=== PATIENT | male | born 1955 | race Caucasian/White ===

== ENCOUNTER 2020-01-23 07:35 | Outpatient (CLI) | payer OTHER ==
[2020-01-23 15:41] LABS: BASOPHILS % (AUTO) 0.7 %; EOSINOPHILS # (AUTO) 0.1 10^3/uL (0.0-0.7); EOSINOPHILS % (AUTO) 2.4 %; HGB - HEMOGLOBIN 14.7 g/dL (14.0-18.0); LYMPHOCYTES # (AUTO) 1.2 10^3/uL (1.5-3.5); LYMPHOCYTES % (AUTO) 28.9 %; MEAN CORPUSCULAR HEMOGLOBIN 31.1 pg (27.0-31.0); MEAN CORPUSCULAR VOLUME 91.3 fL (80.0-94.0); MEAN PLATELET VOLUME 10.3 fL (7.4-11.4); MONOCYTES # (AUTO) 0.4 10^3/uL (0.0-1.0); MONOCYTES % (AUTO) 9.1 %; NEUTROPHILS # (AUTO) 2.5 10^3/uL (1.5-6.6); NEUTROPHILS % (AUTO) 58.7 %; PLT - PLATELET COUNT 168 10^3/uL (130-450); RED BLOOD COUNT 4.73 10^6/uL (4.70-6.10); RED CELL DISTRIBUTION WIDTH 12.8 % (12.0-15.0); WHITE BLOOD COUNT 4.2 x10^3/uL (4.8-10.8)
[2020-01-23 15:57] LABS: ALBUMIN 4.5 g/dL (3.2-5.5); ALKALINE PHOSPHATASE 58 IU/L (42-121); ALT ALANINE AMINOTRANSFERASE 21 IU/L (10-60); AST ASPARTATE AMINOTRANSFERASE 21 IU/L (10-42); BILIRUBIN,TOTAL 0.8 mg/dL (0.2-1.0); BUN - BLOOD UREA NITROGEN 12 mg/dL (6-20); CALCIUM 9.3 mg/dL (8.5-10.3); CARBON DIOXIDE - CO2 25 mmol/L (21-32); CHLORIDE 102 mmol/L (101-111); CHOL/HDL RATIO 2.4 (<5.0); CHOLESTEROL 203 mg/dL; CREATININE 0.7 mg/dL (0.6-1.2); GLUCOSE 109 mg/dL (70-100); HDL CHOLESTEROL 86 mg/dL; LDL CHOLESTEROL,CALCULATED 106 mg/dL; LDL/HDL RATIO 1.2 (<3.6); SODIUM 138 mmol/L (135-145); TOTAL PROTEIN 6.8 g/dL (6.7-8.2); VLDL CHOLESTEROL 11 mg/dL
== END 2020-01-23 07:36 | disposition home or self-care (01) ==
LOC: LAB.S 07:35
PROVIDERS: ATTEND Registered Nurse
DX: Z13.220 Encounter for screening for lipoid disorders (principal); Z12.5 Encounter for screening for malignant neoplasm of prostate; Z13.29 Encounter for screening for other suspected endocrine disorder; Z13.0 Encounter for screening for diseases of the blood and blood-forming organs and certain disorders involving the immune mechanism; Z13.228 Encounter for screening for other metabolic disorders
CPT/HCPCS: 36415; 80053; 80061; 83721; 84153; 84443; 85025

== ENCOUNTER 2020-03-01 07:50 | Outpatient (CLI) | payer OTHER ==
--- NOTE | 2020-03-01 08:43 | Ultrasound Report ---
PROCEDURE: Aorta Screening INDICATIONS: CARDIOVASCULAR SCREENING TECHNIQUE: Real time scanning was performed of the aorta and iliac arteries, with image documentatio n. COMPARISON: None FINDINGS: Aorta: Proximal aortic diameter measures 2.5 x 2.3 cm. Mid-aorta measures 2.0 x 2.0 cm. Distal aor tic diameter is 2.0 x 2.0 cm. Iliac arteries: Right common iliac artery measures 1.3 x 1.2 cm. Left common iliac artery measures 1.4 x 1.2 cm. IMPRESSION: No aortic or iliac artery aneurysm. Minimal atherosclerotic disease identified. Reviewed by: Dwayne Haddad MD on 03/01/2020 8:42 AM PST Approved by: Dwayne Haddad MD on 03/01/2020 8:42 AM PST Station ID: [id number]
== END 2020-03-01 07:51 | disposition home or self-care (01) ==
LOC: DI 07:50
PROVIDERS: ATTEND Registered Nurse
DX: Z13.6 Encounter for screening for cardiovascular disorders (principal)

== ENCOUNTER 2020-11-01 22:50 | Emergency (ER) | payer OTHER ==
[2020-11-01 23:13] LABS: BILIRUBIN,URINE NEGATIVE (NEGATIVE); GLUCOSE, URINE (UA) NEGATIVE (NEGATIVE); KETONES,URINE (UA) TRACE mg/dL (NEGATIVE); LEUKOCYTE ESTERASE, URINE TRACE (NEGATIVE); NITRITE,URINE NEGATIVE (NEGATIVE); OCCULT BLOOD,URINE LARGE (NEGATIVE); PROTEIN,URINE >=300 mg/dL (NEGATIVE); UROBILINOGEN,URINE 1 (NORMAL) E.U./dL (NORMAL)
[2020-11-01 23:14] LABS: BASOPHILS % (AUTO) 0.4 %; EOSINOPHILS # (AUTO) 0.1 10^3/uL (0.0-0.7); EOSINOPHILS % (AUTO) 1.8 %; HCT - HEMATOCRIT 42.4 % (42.0-52.0); HGB - HEMOGLOBIN 14.7 g/dL (14.0-18.0); LYMPHOCYTES # (AUTO) 1.6 10^3/uL (1.5-3.5); LYMPHOCYTES % (AUTO) 28.1 %; MEAN CORPUSCULAR HEMOGLOBIN 31.5 pg (27.0-31.0); MEAN CORPUSCULAR HGB CONC 34.7 g/dL (32.0-36.0); MONOCYTES # (AUTO) 0.5 10^3/uL (0.0-1.0); MONOCYTES % (AUTO) 9.4 %; NEUTROPHILS # (AUTO) 3.3 10^3/uL (1.5-6.6); NEUTROPHILS % (AUTO) 59.8 %; PLT - PLATELET COUNT 172 10^3/uL (130-450); RED BLOOD COUNT 4.66 10^6/uL (4.70-6.10); WHITE BLOOD COUNT 5.6 x10^3/uL (4.8-10.8)
[2020-11-01 23:15] LABS: CLARITY,URINE CLOUDY (CLEAR)
[2020-11-01 23:16] LABS: RBC,URINE TNTC /HPF (0-5); SQUAMOUS EPITHELIAL CELL,UR NONE SEEN (<= Few); WBC,URINE 0-3 /HPF (0-3)
[2020-11-01 23:17] LABS: BACTERIA,URINE Rare /HPF (None Seen)
[2020-11-01 23:25] LABS: ALBUMIN 4.2 g/dL (3.2-5.5); ALBUMIN/GLOBULIN RATIO 1.9 (1.0-2.2); BILIRUBIN,TOTAL 0.7 mg/dL (0.2-1.0); CALCIUM 8.8 mg/dL (8.5-10.3); CREATININE 0.7 mg/dL (0.6-1.2); POTASSIUM 3.8 mmol/L (3.5-5.0); TOTAL PROTEIN 6.4 g/dL (6.7-8.2)
[2020-11-01] MEDS ORDERED: IOPAMIDOL-300 100 ML VIAL ONE (23:48)
[2020-11-02] MEDS ORDERED: IOPAMIDOL-300 100 ML VIAL IVP ONE (00:09)
--- NOTE | 2020-11-02 00:57 | ED Physician Documentation ---
History of Present Illness - Stated complaint Stated Complaint: BLOOD IN URINE - Chief complaint Chief Complaint: General - History obtained from History obtained from: Patient - Additonal information Additional information: 65-year-old man with history of HPV p16 throat cancer presents with hematuria this evening. Patient and his got home from [place] today and were having sex for a long time then stopped and he got up to go to the bathroom. He urinated a couple of clots and then gross hematuria multiple times. Patient states that he urinated this morning and it was normal color. Denies penile, testicular, abdominal pain, back pain, fever, increased frequency, or dysuria. He did have a clot placed through the urine 3 years ago but never had an abdominal CT scan per his report to investigate. Review of Systems Ten Systems: 10 systems reviewed and negative Constitutional: denies: Fever, Chills GI: denies: Abdominal Pain, Nausea, Vomiting : reports: Hematuria. denies: Dysuria, Frequency PD PAST MEDICAL HISTORY - Present Medications Home Medications: Ambulatory Orders Medication Instructions Recorded Confirmed Cefpodoxime Proxetil [Vantin] 200 mg PO Q12H #28 tablet 11/02/20 - Allergies Allergies/Adverse Reactions: Allergies Allergy/AdvReac Type Severity Reaction Status Date / Time Penicillins Allergy Unknown Verified 11/01/20 23:05 - Social History Does the pt smoke?: No Smoking Status: Never smoker PD ED PE NORMAL - Vitals Vital signs reviewed: Yes - General General: Alert and oriented X 3, No acute distress, Well developed/nourished - HEENT HEENT: Atraumatic, PERRL, EOMI - Neck Neck: Supple, no meningeal sign - Cardiac Cardiac: RRR - Respiratory Respiratory: No respiratory distress, Clear bilaterally - Abdomen Abdomen: Non tender, Non distended - Back Back: No CVA TTP - Derm Derm: Normal color, Warm and dry - Extremities Extremities: No deformity - Neuro Neuro: Alert and oriented X 3 - Psych Psych: Normal mood, Normal affect Results - Vitals Vitals: Vital Signs - 24 hr 11/01/20 11/01/20 23:05 23:09 Temperature 36.4 C L 36.4 C L Heart Rate 54 L 54 L Respiratory 16 16 Rate Blood Pressure 125/71 125/71 O2 Saturation 97 97 Oxygen O2 Source Room air - Labs Labs: Laboratory Tests 11/01/20 11/01/20 11/01/20 23:00 23:07 23:07 WBC 5.6 RBC 4.66 L Hgb 14.7 Hct 42.4 MCV 91.0 MCH 31.5 H MCHC 34.7 RDW 13.0 Plt Count 172 MPV 9.0 Neut # (Auto) 3.3 Lymph # (Auto) 1.6 Haakon # (Auto) 0.5 Eos # (Auto) 0.1 Baso # (Auto) 0.0 Absolute Nucleated RBC 0.00 Nucleated RBC % 0.0 Sodium 142 Potassium 3.8 Chloride 105 Carbon Dioxide 25 Anion Gap 12.0 BUN 12 Creatinine 0.7 Estimated GFR (MDRD) 114 Glucose 127 H Calcium 8.8 Total Bilirubin 0.7 AST 16 ALT 21 Alkaline Phosphatase 61 Total Protein 6.4 L Albumin 4.2 Globulin 2.2 Albumin/Globulin Ratio 1.9 Lipase 26 Urine Color RED/BLOODY Urine Clarity CLOUDY Urine pH 7.0 Ur Specific Glasco 1.025 Urine Protein >=300 H Urine Glucose (UA) NEGATIVE Urine Ketones TRACE Urine Occult Blood LARGE H Urine Nitrite NEGATIVE Urine Bilirubin NEGATIVE Urine Urobilinogen 1 (NORMAL) Ur Leukocyte Esterase TRACE H Urine RBC TNTC H Urine WBC 0-3 Ur Squamous Epith Cells NONE SEEN Urine Bacteria Rare Ur Microscopic Review INDICATED Urine Culture Comments INDICATED PD MEDICAL DECISION MAKING - ED course ED course: 65-year-old man presents with asymptomatic hematuria. Will obtain CT abdomen to evaluate for cancer etiology. Low suspicion for kidney stones at this time. Patient has a PET scan scheduled for . CT showed bladder mass 4cm - neoplasm vs blood clot vs "fungus ball". d/w patient need for cystoscopy and biopsy. will give abx for now, given leukocyte esterase in urine. return precautions given. Departure - Departure Disposition: Home, Self Care Clinical Impression: Hematuria, Bladder mass, UTI (urinary tract infection) Condition: Good Instructions: ED UTI Cystitis Male Prescriptions: Cefpodoxime Proxetil [Vantin] 200 mg PO Q12H #28 tablet Comments: You were seen in the emergency department for evaluation of blood in the urine (hematuria). A CT was done which found a 4 cm urinary bladder mass which is a possible neoplasm versus blood clot versus fungus ball. You need to have a cystoscopy and biopsy by a urologist. Your lab work was otherwise normal, and your urine had increased white blood cells which points towards a possible infection. Please take your antibiotics as prescribed and return to the emergency department if you have any new or worsening symptoms or other concerns.
[2020-11-02] MEDS ORDERED: CEFPODOXIME PROXETIL 100 MG TABLET PO STA (01:29)
[2020-11-02 01:33] VITALS: BP 126/70
--- NOTE | 2020-11-02 12:12 | CT Report ---
PROCEDURE: Abdomen/Pelvis W INDICATIONS: hematuria, passing blood clots. hx throat CA CONTRAST: IV CONTRAST: Isovue 300 ml: 100 PO CONTRAST: *NO PO CONTRAST TECHNIQUE: After the administration of IV contrast, 5 mm thick sections acquired from the diaphragms to the symp hysis. 5 mm thick coronal and sagittal reformats were acquired. For radiation dose reduction, the f ollowing was used: automated exposure control, adjustment of mA and/or kV according to patient size. COMPARISON: None. FINDINGS: Image quality: Excellent. ABDOMEN: Lung bases: Bibasilar atelectasis. Heart size is normal. Solid organs: Liver and spleen are normal in size and enhancement. Gallbladder is normal Biliary s ystem is non dilated. Pancreas enhances normally. No adrenal nodules. Kidneys demonstrate normal s ize and enhancement, without hydronephrosis. There is a 1.2 cm of hepatic low-density nodule in righ t kidney, better with a small cyst. Peritoneum and bowel: Bowel loops demonstrate normal wall thickness and caliber. No free fluid or a ir. Nodes and vessels: No retroperitoneal or mesenteric adenopathy by size criteria. Aorta and inferior vena cava are normal in size. Miscellaneous: There is a small fat-containing umbilical hernia. PELVIS: Genitourinary: There is a mass in the gravity dependent dependent bladder lumen, measuring 2.8 cm AP x 3.7 cm mass versus x 3.3 cm cephalocaudal. Bladder wall thickness is normal. Prostate is enlarged . Miscellaneous: No inguinal hernias or adenopathy. Bones: No suspicious bony lesions. No vertebral body compression fractures. IMPRESSION: 1. There is a mass in the gravity dependent dependent bladder lumen, measuring 2.8 x 3.7 x 3.3 cm. Di fferential diagnoses include uroepithelial neoplasm versus a hematoma. Recommend cystoscopy for follo w-up evaluation. 2. No renal stone or hydronephrosis. 3. Enlarged prostate. No significant discrepancy with the preliminary interpretation. Reviewed by: Cami Lyle MD on 11/02/2020 12:11 PM PDT Approved by: Cami Lyle MD on 11/02/2020 12:11 PM PDT Station ID: [id number]
== END 2020-11-02 01:34 | disposition home or self-care (01) ==
LOC: ED 22:50
DX: N32.89 Other specified disorders of bladder (principal); N39.0 Urinary tract infection, site not specified; R31.0 Gross hematuria
CPT/HCPCS: 36415; 74177; 80053; 81001; 83690; 85025; 87086; 99284; A9270; Q9967; 81003